=== PATIENT | female | born 1985 | race Two or more races ===

== ENCOUNTER → 2024-07-11 | Emergency (ER) | payer BC ==
[~2024-07-11] VITALS: Ht 175.3 cm; Wt 104.3 kg
[~2024-07-11] MED LIST: AMITRIPTYLINE H25 MG PO; FEXMID7.5 MG; GRALISE600 MG; HYDRODIURIL12.5 MG PO; KETO10TA2 PO; KETOROLAC TROMETHAMINE 30 MG VIAL IM STA; METHOCARBAMOL500 MG PO; NAPR500T14; ORPHENADRINE CITRATE 30 MG/ML AMPUL IM STA; SERTRALINE20 MG/1 ML
== END | disposition home or self-care (01) ==
LOC: ER 18:22
DX: M54.50 Low back pain, unspecified (principal)